=== PATIENT | male | born 1985 | race Caucasian/White ===

== ENCOUNTER 2022-09-19 16:39 | Emergency (ER) | payer SELFPAY ==
[2022-09-19 17:09] VITALS: BP 162/115; PULSE 89; RESP 17; TEMP 36.7; O2SAT 98; BMI 38.2
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
[2022-09-19] MEDS: acetaminophen 500 mg Tablet 1000 MG PO (21:36)
--- NOTE | 2022-09-20 15:35 | DCPLANNER ---
room manager called patient due to no primary care physician - no answer at this time.
== END 2022-09-19 22:16 | disposition home or self-care (01) ==
PROVIDERS: Emergency Provider Nurse Practitioner Family
DX: S16.1XXA Strain of muscle, fascia and tendon at neck level, initial encounter (principal); S09.90XA Unspecified injury of head, initial encounter; V53.5XXA Driver of pick-up truck or van injured in collision with car, pick-up truck or van in traffic accident, initial encounter
CPT/HCPCS: 70450; 72125; 99284